=== PATIENT | female | born 1955 | race American Indian/Alaskan Native ===

== ENCOUNTER 2016-11-27 09:46 | Emergency (ER) | payer MEDICARE, MEDICAID ==
[2016-11-27 09:47] VITALS: BMI 31.2
[2016-11-27 09:57] VITALS: BP 142/79; PULSE 91; RESP 16; TEMP 98.7; O2SAT 100
--- NOTE | 2016-11-27 10:14 | ED PDOC ---
Arrival/HPI - General Chief Complaint: Medical Clearance Time Seen by Provider: 11/27/16 10:08 Historian: Patient, Family - History of Present Illness Narrative History of Present Illness (Text): 11/27/16 10:00 Laquita Bower is a 60 year old female complaining of pain in her dialysis catheter site. Patient reports the catheter was placed in [place] last month. She is unable to say how long the pain has been going on exactly but says it became worse today. Denies f/c, n/v. Time/Duration: 24 hours Symptom Onset: Gradual Symptom Course: Worsening Past Medical History - Provider Review Nursing Documentation Reviewed: Yes - Infectious Disease Hx of Infectious Diseases: None - Reproductive Menopause: Yes - Cardiac Hx Hypertension: Yes - Pulmonary Hx Respiratory Disorders: No - Neurological Hx Neurological Disorder: Yes Other/Comment: neuropathy - HEENT Hx HEENT Disorder: Yes Other/Comment: wears eyeglasses - Renal Hx Renal Disorder: Yes - Endocrine/Metabolic Hx Endocrine Disorders: Yes Hx Systemic Lupus Erythematosus: Yes - Hematological/Oncological Hx Blood Disorders: Yes Hx Blood Transfusions: Yes Hx Blood Transfusion Reaction: Yes (BLOOD IN URINE, VOMITING, DIARRHEA, FEVER) Other/Comment: sepsis due to MRSA - Integumentary Hx Dermatological Disorder: No - Musculoskeletal/Rheumatological Hx Falls: No - Gastrointestinal Hx Diverticulitis: Yes (with perforation) Hx Pancreatitis: Yes - Genitourinary/Gynecological Other/Comment: pt still able to urinate,,kidney calculus - Psychiatric Hx Psychophysiologic Disorder: No Hx Substance Use: Yes (quit 26 years ago) - Surgical History Other/Comment: ruptured colon,, sigmoid colon resection - Anesthesia Hx Anesthesia: Yes Hx Anesthesia Reactions: No Family/Social History - Physician Review Nursing Documentation Reviewed: Yes Family/Social History: Other (non-contributory ) Smoking Status: Never Smoked Hx Alcohol Use: No Hx Substance Use: Yes (quit 26 years ago) Allergies/Home Meds Allergies/Adverse Reactions: Allergies No Known Allergies Allergy (Verified 11/23/16 13:07) Home Medications: Home Meds Medication Instructions Recorded Confirmed Allopurinol [Zyloprim] 100 mg PO DAILY 11/21/16 11/27/16 Calcium Carbonate 1 tab PO BID 11/21/16 11/27/16 Ferrous Sulfate [Slow Release Iron] 142 mg PO DAILY 11/21/16 11/27/16 Hydroxychloroquine Sulfate 200 mg PO DAILY 11/21/16 11/27/16 Metoprolol Succinate [Toprol XL] 50 mg PO BID 11/21/16 11/27/16 Sodium Bicarbonate Tab 650 mg PO QID 11/21/16 11/27/16 Tamsulosin [Flomax] 0.4 mg PO DAILY 11/21/16 11/27/16 Calcitriol 0.25 mcg PO DAILY 11/24/16 11/27/16 Vit B Cmplx 3/Folic AC/C/Biot 1 tab PO DAILY 11/24/16 11/27/16 [Supriya-Demarco Rx Tablet] Review of Systems - Review of Systems Constitutional: absent: Fevers Respiratory: absent: SOB Cardiovascular: absent: Chest Pain Gastrointestinal: absent: Abdominal Pain, Nausea, Vomiting Neurological: absent: Headache Physical Exam Vital Signs Reviewed: Yes Vital Signs Temp Pulse Resp BP Pulse Ox 11/27/16 09:51 98.7 F 91 H 16 142/79 100 Temperature: Afebrile Blood Pressure: Normal Pulse: Regular Respiratory Rate: Normal Appearance: Positive for: Well-Appearing, Non-Toxic, Comfortable Pain Distress: None Mental Status: Positive for: Alert and Oriented X 3 - Systems Exam Head: Present: Atraumatic Conjunctiva: Present: Normal Mouth: Present: Moist Mucous Membranes Respiratory/Chest: Present: Clear to Auscultation, Other (tunneled catheter site right chest wall without any erythema or drainage or bleeding. ). No: Respiratory Distress, Accessory Muscle Use Cardiovascular: Present: Regular Rate and Rhythm Abdomen: No: Tenderness, Distention Neurological: Present: GCS=15, Motor Func Grossly Intact, Normal Sensory Function, Other (no focal deficits) Skin: Present: Warm, Dry Psychiatric: Present: Alert, Oriented x 3, Normal Insight, Normal Concentration Medical Decision Making ED Course and Treatment: 11/27/16 11:10 Chest X-ray: Creator : Abdullahi Wynne MD FINDINGS: LUNGS: No active pulmonary disease. PLEURA: No significant pleural effusion identified, no pneumothorax apparent. CARDIOVASCULAR: Normal. OSSEOUS STRUCTURES: No significant abnormalities. VISUALIZED UPPER ABDOMEN: Normal. OTHER FINDINGS: Right internal jugular dialysis catheter IMPRESSION: No active disease. I disc w the pts pmd who agrees w plan for admission for further eval of catheter pain 11/27/16 11:28 AMA The patient declines admission, and wishes to leave the Emergency Department before her labs are resulted. This action is against my medical advice to the patient and the decision was made with informed refusal. The risks of leaving were explained to the patient and include, but are not limited to, worsening of known or currently unknown conditions, permanent disability and from undiagnosed or untreated conditions The patient has the capacity to make this informed decision and understands the clinical situation and my explanation of the risks of leaving. The patient voluntarily accepts these risks, and a signed AMA form documenting our conversation was obtained. The patient was given the opportunity to ask questions and reconsider. The patient was encouraged to return to the Emergency Department at any time for further care. 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 I have reviewed the chart and agree that the record accurately reflects my personal performance of the history, physical exam, medical decision making, and the department course for this patient. I have also personally directed, reviewed, and agree with the discharge instructions and disposition. Disposition/Present on Arrival - Present on Arrival Any Indicators Present on Arrival: No History of DVT/PE: No History of Uncontrolled Diabetes: No Urinary Catheter: No History of Decub. Ulcer: No History Surgical Site Infection Following: None - Disposition Have Diagnosis and Disposition been Completed?: Yes Diagnosis: ESRD (end stage renal disease) on dialysis Disposition: AGAINST MEDICAL ADVICE Disposition Time: 11:45 Condition: STABLE Additional Instructions: Please follow up with your doctor. You may return here at any time should you change your mind. Referrals: Pili Watt MD [Staff Provider] - Follow up with primary Forms: [facility] (Macedonian)
--- NOTE | 2016-11-27 11:10 | RAD ---
HISTORY: tunneled catheter pain COMPARISON: No prior. FINDINGS: LUNGS: No active pulmonary disease. PLEURA: No significant pleural effusion identified, no pneumothorax apparent. CARDIOVASCULAR: Normal. OSSEOUS STRUCTURES: No significant abnormalities. VISUALIZED UPPER ABDOMEN: Normal. OTHER FINDINGS: Right internal jugular dialysis catheter IMPRESSION: No active disease.
== END 2016-11-27 11:52 | disposition left against medical advice (07) ==
LOC: ED 09:46
DX: I12.0 Hypertensive chronic kidney disease with stage 5 chronic kidney disease or end stage renal disease (principal); N18.6 End stage renal disease; Z99.2 Dependence on renal dialysis; M32.9 Systemic lupus erythematosus, unspecified